=== PATIENT | male | born 1985 | race Caucasian/White ===

== ENCOUNTER 2023-11-19 10:44 | Emergency (ER) | payer SELFPAY ==
[2023-11-19] VITALS (16 sets, daily range): BP systolic 155; BP diastolic 92; PULSE 75–113; RESP 12–22; O2SAT 92–96
--- NOTE | 2023-11-19 11:11 | PC.PHAR ---
pt unable to verify medications no meds pull up on ext med history
--- NOTE | 2023-11-19 11:13 | XRR_ITS ---
PROCEDURE INFORMATION: Exam: XR Chest Exam date and time: 11/19/2023 11:18 AM Age: 38 years old Clinical indication: Other: Drug od TECHNIQUE: Imaging protocol: Radiologic exam of the chest. Views: 1 view. COMPARISON: CT cervical spin wo con* [id number] 02/27/2017 2:51 PM FINDINGS: Lungs: Unremarkable. No consolidation. Pleural spaces: Unremarkable. No pleural effusion. No pneumothorax. Heart/Mediastinum: Unremarkable. No cardiomegaly. Bones/joints: Unremarkable. XR/XR chest 1V portable [id number] IMPRESSION: No acute findings.
--- NOTE | 2023-11-19 11:13 | W.ED.OVERDOS ---
HPI - Overdose General: Chief Complaint: Overdose Stated Complaint: OVERDOSE Time Seen by Provider: 11/19/23 11:02 History of Present Illness: The patient, Onesimo, presents with a history of fentanyl use and recent administration of two doses of Narcan by bystanders. He reports that he took the last dose of fentanyl and Narcan approximately 30 to 45 minutes prior to the visit. He has a history of multiple episodes of opioid overdose, with an estimated 100 doses of Narcan administered this year alone. He mentions feeling sick from the Narcan but does not report any other symptoms. Onesimo is not currently in treatment for substance abuse but has plans to seek treatment within the next five years. Onesimo denies any other medical problems. He was born on 1985. During the visit, the patient was noted to have difficulty with venous access, possibly due to scarring from previous intravenous drug use. He was also observed to be breathing hard, raising concerns about possible aspiration. Review of Systems General: Reports: 10 or more systems reviewed and unremarkable except in HPI and below Const: Denies: fever(s) Card: Denies: palpitations or edema Resp: Denies: dyspnea Skin/Breast: Denies: rash Physical Exam Const: COMMON NORMALS: no acute distress, patient oriented x3, healthy appearing and well nourished GENERAL APPEARANCE: disheveled and lethargic ORIENTATION/CONSCIOUSNESS: Yes lethargic HENMT: COMMON NORMALS: normocephalic HEAD & SCALP: normocephalic Eye: COMMON NORMALS: EOMs intact bilaterally Neck/C-Spine: COMMON NORMALS: full ROM and supple Resp: COMMON NORMALS: normal respiratory effort, No retractions and clear to auscultation bilaterally AUSCULTATION: clear to auscultation bilaterally Cardio: COMMON NORMALS: regular rate, regular rhythm, No gallops present (Cardio) and No murmurs present (Cardio) RATE: regular rate RHYTHM: regular rhythm GI: COMMON NORMALS: Soft to palpation and non-tender PALPATION: Yes Soft to palpation Extremity: GENERAL: Yes normal exam except as noted Neuro: COMMON NORMALS: patient oriented x3 SENSORIUM/ORIENTATION: Yes lethargic Skin: COMMON NORMALS: no rashes or lesions noted GENERAL SKIN EXAM: no rashes or lesions noted Course Vital Signs: Vital signs: Vital Signs Pulse Rate 76 11/19/23 14:30 Respiratory Rate 13 11/19/23 14:30 Blood Pressure 155/92 11/19/23 11:06 Pulse Oximetry 96 11/19/23 14:30 Oxygen Delivery Me thod Room Air 11/19/23 14:15 MDM - Overdose Medical Decision Making 38-year-old male presents to the emergency department via EMS secondary to opiate overdose. Patient received 2 doses of Narcan prior to EMS arrival. Patient remained stable through transport. Upon arrival in the emergency department patient was easily arousable but tired. He remained stable throughout the stay in the emergency department. Patient not need redosing of his Narcan during this stay. Patient was counseled on the need to seek rehabilitative services. He denied any assistance at this time. Patient was discharged home in good condition. Return precautions were discussed. Lab Data Radiology Impressions Chest X-Ray 11/19/23 11:13 IMPRESSION: No acute findings. All radiology interpretation(s) finalized by discharge EKG Data EKG 1: EKG interpretation date: 11/19/23 EKG interpretation time: 10:52 Prior EKG tracings: not available for review Interpretation: Sinus rhythm with a rate of 95, MT interval 160, QRS of 88, QTc 400, no ST segment elevation or depression, normal axis Discharge Plan Discharge Patient Disposition: Home Clinical Impression: Drug overdose Qualifiers: Encounter type: initial encounter Injury intent: accidental or unintentional Qualified Code(s): T50.901A - Poisoning by unspecified drugs, medicaments and biological substances, accidental (unintentional), initial encounter Condition: Stable Prescriptions: No Action Unable to Assess Discharge Orders: Discharge ED (Routine); Ordered 11/19/23 Ordered By: Rober Law Discharge Diet: Regular Discharge Activity: Increase activity as tolerated Patient Instructions: Opioid Safety, Pain Management Coding Level of Care Code ED Technical Support Associate for Hussain Jones
== END 2023-11-19 15:37 | disposition home or self-care (01) ==
PROVIDERS: Emergency Provider General Practice
DX: T40.411A Poisoning by fentanyl or fentanyl analogs, accidental (unintentional), initial encounter (principal)
CPT/HCPCS: 71045; 99283